=== PATIENT | male | born 1995 | race Caucasian/White ===

== ENCOUNTER 2019-12-04 11:17 | Emergency (ER) | payer MEDICAID ==
[~2019-12-04] VITALS: Ht 170.2 cm; Wt 70.5 kg
[2019-12-04] MEDS ORDERED: diphenhydrAMINE 50 mg/ml inj IM ONE (12:35)
[2019-12-04 13:12] VITALS: BP 112/79
== END 2019-12-04 13:10 | disposition home or self-care (01) ==
LOC: ER 11:18
DX: F41.0 Panic disorder [episodic paroxysmal anxiety] (principal)
CPT/HCPCS: 96372; 99283; J1200

== ENCOUNTER 2025-04-29 15:33 | Emergency (ER) | payer BC, MEDICAID ==
[~2025-04-29] VITALS: Ht 170.2 cm; Wt 68.2 kg
[2025-04-29 15:36] VITALS: BP 138/100; PULSE 76; RESP 15; TEMP 98.9; O2SAT 98
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
[2025-04-29] MEDS ORDERED: ibuprofen tablet 400 MG TABLET PO ONE (18:55)
[2025-04-29] MEDS ORDERED: CIPR10DR LEFT EAR (22:16)
[2025-04-30] MEDS ORDERED: CIPR10DR LEFT EAR (16:19)
== END 2025-04-29 22:49 | disposition home or self-care (01) ==
LOC: ER 15:34
DX: H72.92 Unspecified perforation of tympanic membrane, left ear (principal)
CPT/HCPCS: 99283